=== PATIENT | male | born 1985 | race Asian ===

== ENCOUNTER 2018-12-28 10:03 | Emergency (ER) | payer OTHER ==
[~2018-12-28] VITALS: Ht 162.6 cm; Wt 72.0 kg
[2018-12-28 10:09] VITALS: BP 133/79
[2018-12-28] MEDS ORDERED: TETRACAINE 0.5% OPHTH DROPS 4ML RIGHTEYE ONE (11:00)
[2018-12-28] MEDS ORDERED: FLUORESCEIN SODIUM 1MG/STRIP RIGHTEYE ONE (11:00)
[2018-12-28] MEDS ORDERED: ACETAMINOPHEN 325MG TABLET PO ONE (11:45)
== END 2018-12-28 12:05 | disposition home or self-care (01) ==
LOC: ER 10:03
DX: H57.11 Ocular pain, right eye (principal); Z90.49 Acquired absence of other specified parts of digestive tract; Z98.890 Other specified postprocedural states
CPT/HCPCS: 99283; 99284